=== PATIENT | male | born 1985 | race Caucasian/White ===

== ENCOUNTER 2017-03-08 20:05 | Emergency (ER) | payer BC, OTHER ==
[2017-03-08 20:20] VITALS: BP 130/91
[2017-03-08] MEDS ORDERED: TETRACAINE HCL 0.5% OPH SOLN 2 ML OS ONE (20:39)
--- NOTE | 2017-03-08 20:45 | ER Document Report ---
ED Eye Complaint - General Chief Complaint: Eye Problem Stated Complaint: RIGHT EYE PAIN Time Seen by Provider: 03/08/17 20:39 Notes: The patient is a 31-year-old male, contact user, history of panic attacks, presents with a few minutes of swelling of his right eye. He was scratching before the swelling of the sclera. He feels a burning sensation. He is not sure if he has blurry vision because he does not have his contacts or glasses on. He denies eye discharge, rash or trouble breathing. TRAVEL OUTSIDE OF THE [place] IN LAST 30 DAYS: No - Related Data Allergies/Adverse Reactions: amoxicillin Allergy (Verified 03/08/17 20:24) oxycodone Allergy (Verified 03/08/17 20:25) Penicillins Allergy (Verified 03/08/17 20:24) tapentadol [From Nucynta] Allergy (Verified 03/08/17 20:25) tramadol Allergy (Verified 03/08/17 20:24) Past Medical History - General Information source: Patient - Social History Smoking Status: Never Smoker Chew tobacco use (# tins/day): No Frequency of alcohol use: Social Drug Abuse: None Family History: Reviewed & Not Pertinent Patient has suicidal ideation: No Patient has homicidal ideation: No Renal/ Medical History: Denies: Hx Peritoneal Dialysis Surgical Hx: Negative - Immunizations Hx Diphtheria, Pertussis, Tetanus Vaccination: Yes Review of Systems - Review of Systems Notes: REVIEW OF SYSTEMS: CONSTITUTIONAL: -fevers, -chills EENT: +right eye swelling, +eye pain, -difficulty swallowing, -nasal congestion CARDIOVASCULAR:-chest pain, -syncope. RESPIRATORY: -cough, -SOB GASTROINTESTINAL: -abdominal pain, - nausea, -vomiting, -diarrhea GENITOURINARY: -dysuria, -hematuria MUSCULOSKELETAL: -back pain, -neck pain SKIN: -rash or skin lesions. HEMATOLOGIC: -easy bruising or bleeding. LYMPHATIC: -swollen, enlarged glands. NEUROLOGICAL: -altered mental status or loss of consciousness, -headache, - neurologic symptoms PSYCHIATRIC: -anxiety, -depression. ALL OTHER SYSTEMS REVIEWED AND NEGATIVE. Physical Exam - Vital signs Vitals: Temp Pulse Resp BP Pulse Ox 98.2 F 91 20 130/91 H 100 03/08/17 20:17 03/08/17 20:17 03/08/17 20:17 03/08/17 20:17 03/08/17 20:17 - Notes Notes: PHYSICAL EXAMINATION: GENERAL: Well-appearing, well-nourished and in no acute distress. HEAD: Atraumatic, normocephalic. EYES: Pupils equal round and reactive to light, extraocular movements intact, swelling and edema of the right inferior sclera ENT: nares patent, oropharynx clear without exudates. Moist mucous membranes. NECK: Normal range of motion, supple without lymphadenopathy LUNGS: Breath sounds clear to auscultation bilaterally and equal. No wheezes rales or rhonchi. HEART: Regular rate and rhythm without murmurs ABDOMEN: Soft, nontender, normoactive bowel sounds. No guarding, no rebound. No masses appreciated. EXTREMITIES: Normal range of motion, no pitting or edema. No cyanosis. NEUROLOGICAL: Cranial nerves grossly intact. Normal speech, normal gait. Normal sensory and motor exams. PSYCH: Anxious mood SKIN: Warm, Dry, normal turgor, no rashes or lesions noted. Course - Re-evaluation Re-evalutation: Pt with evidence of scleritis, most likely allergic or from him rubbing his eyes. No corneal defects on exam and his vision is unchanged. Will provide him with Naphcon for the pruritus and erythromycin with follow-up at ophthalmology. - Vital Signs Vital signs: Temp Pulse Resp BP Pulse Ox 98.2 F 91 20 130/91 H 100 03/08/17 20:17 03/08/17 20:17 03/08/17 20:17 03/08/17 20:17 03/08/17 20:17 Discharge - Discharge Clinical Impression: Scleritis of right eye Condition: Stable Disposition: HOME, SELF-CARE Additional Instructions: Use the Naphcon drops and apply the erythromycin ointment to the eye. Follow- up with the safety lamp keeper. Prescriptions: Erythromycin Base [Erythromycin] 1 gm OP Q8H 7 Days Naphazoline HCl/Pheniramine [Naphcon-A Eye Drops] 10 ml OP Q6H PRN #2 drops PRN Reason: Referrals: SANDY LEE DO [ACTIVE STAFF] - Follow up as needed
== END 2017-03-08 21:00 | disposition home or self-care (01) ==
LOC: ER 20:05
DX: H15.001 Unspecified scleritis, right eye (principal); Z88.0 Allergy status to penicillin; Z88.5 Allergy status to narcotic agent; Z88.6 Allergy status to analgesic agent
CPT/HCPCS: 99283